=== PATIENT | female | born 2000 | race Caucasian/White ===

== ENCOUNTER 2020-02-18 13:53 | Outpatient (CLI) | payer OTHER, SELFPAY ==
[2020-02-20 11:19] LABS: TB Skin Test Erythema 0 mm; TB Skin Test Induration 0 mm (0-10); TB Skin Test Interpretation Negative (Negative); TB Skin Test Site Left Arm
== END 2020-02-18 13:54 | disposition home or self-care (01) ==
PROVIDERS: PCP Family Medicine; Visit Provider Family Medicine
DX: Z11.1 Encounter for screening for respiratory tuberculosis (principal)
CPT/HCPCS: 36415; 86580

== ENCOUNTER 2020-02-20 11:06 | Outpatient (CLI) | payer OTHER, SELFPAY ==
[2020-02-23 13:55] LABS: TB Skin Test Erythema 0 mm; TB Skin Test Induration 0 mm (0-10); TB Skin Test Interpretation Negative (Negative); TB Skin Test Site Left Arm
== END 2020-02-20 11:07 | disposition home or self-care (01) ==
LOC: CHSLAB 11:07
PROVIDERS: PCP Family Medicine; Visit Provider Family Medicine
DX: Z11.1 Encounter for screening for respiratory tuberculosis (principal)
CPT/HCPCS: 36415; 86580

== ENCOUNTER 2021-05-25 14:27 | Outpatient (CLI) | payer OTHER, SELFPAY ==
[2021-05-25 15:45] LABS: SARS-CoV-2 Ag Negative (Negative)
[2021-05-25 16:24] LABS: SARS-CoV-2 RNA PCR Negative (Negative)
== END 2021-05-25 14:28 | disposition home or self-care (01) ==
LOC: CHSLAB 14:30
PROVIDERS: PCP Family Medicine; Visit Provider Family Medicine
DX: J00 Acute nasopharyngitis [common cold] (principal); Z20.822 Contact with and (suspected) exposure to COVID-19
CPT/HCPCS: 87426; C9803; U0003; U0005

== ENCOUNTER 2021-07-21 13:29 | Outpatient (CLI) | payer OTHER, SELFPAY ==
--- NOTE | ~2021-07-21 | XR_ITS ---
EXAMINATION: XR chest 2V DATE: 07/21/2021 13:58 INDICATION: Cough TECHNIQUE: PA and lateral views of the chest are obtained. COMPARISON: 04/08/2007 FINDINGS: The lungs are free of acute opacities. There is no pleural effusion or pneumothorax. The ca rdiomediastinal silhouette is normal. The visualized bones and soft tissues are unremarkable. IMPRESSION: 1. No acute cardiopulmonary abnormality. Reviewed, dictated and finalized at location B.
== END 2021-07-21 13:30 | disposition home or self-care (01) ==
LOC: CHSIMG 13:33
PROVIDERS: PCP Family Medicine; Visit Provider Family Medicine
DX: R05.9 Cough, unspecified (principal)
CPT/HCPCS: 71046

== ENCOUNTER 2023-01-08 13:27 | Outpatient (CLI) | payer OTHER, SELFPAY ==
--- NOTE | 2023-01-08 14:30 | NEURO_ITS ---
PATIENT NUMBER: : # 22 year old diabetic complains of unusual sensation in lower extremitites. # Normal nerve conduction study. # Needle exam not ordered # could be related to small fiber neuropathy. Clinical correlation recommended. Anti Sensory Summary Table Stim Site NR Peak (ms) P-T Amp (?V) Site1 Site2 Delta-P (ms) Dist (cm) Glen (m/s) Left Sup Fibular Anti Sensory (Ant Lat Mall) 14 cm 3.2 7.2 14 cm Ant Lat Mall 3.2 16.0 50 Right Sup Fibular Anti Sensory (Ant Lat Mall) 14 cm 3.1 11.1 14 cm Ant Lat Mall 3.1 16.0 52 Left Sural Anti Sensory (Lat Mall) Calf 3.5 18.2 Calf Lat Mall 3.5 16.0 46 Right Sural Anti Sensory (Lat Mall) Calf 3.9 12.9 Calf Lat Mall 3.9 16.0 41 Motor Summary Table Stim Site NR Onset (ms) O-P Amp (mV) Site1 Site2 Delta-0 (ms) Dist (cm) Glen (m/s) Left Peroneal Motor (Vastus Med) Ankle 4.8 2.1 Popit Ankle 10.4 43.0 41 Popit 15.2 1.7 Right Peroneal Motor (Vastus Med) Ankle 4.6 3.9 Popit Ankle 8.7 43.0 49 Popit 13.3 3.7 Left Tibial Motor (Abd Cohn Brev) Ankle 5.9 8.9 Knee Ankle 8.0 43.0 54 Knee 13.9 6.3 Right Tibial Motor (Abd Cohn Brev) Ankle 6.2 10.6 Knee Ankle 8.6 44.0 51 Knee 14.8 7.1 F Wave Studies NR F-Lat (ms) L-R F-Lat (ms) Left Peroneal (Mrkrs) (EDB) 54.27 5.52 Right Peroneal (Mrkrs) (EDB) 48.75 5.52 Left Tibial (Mrkrs) (Abd Hallucis) 50.94 0.78 Right Tibial (Mrkrs) (Abd Hallucis) 51.72 0.78 MTDD
== END 2023-01-08 13:28 | disposition home or self-care (01) ==
LOC: ANHNEURO 13:28
PROVIDERS: Visit Provider Family Medicine
DX: M79.604 Pain in right leg (principal); M79.605 Pain in left leg
CPT/HCPCS: 95910

== ENCOUNTER 2023-07-24 11:17 | Outpatient (CLI) | payer OTHER, SELFPAY ==
--- NOTE | ~2023-07-24 | XR_ITS ---
EXAM: XR lumbar spine 2-3V DATE: 07/24/2023 11:33 HISTORY: Low back pain . COMPARISON: CT abdomen pelvis 02/13/2016. FINDINGS: Suture lines over the GE junction and left abdomen. Loss of the normal lumbar lordosis. Unf used right L1 transverse process. 5 nonrib-bearing lumbar-type vertebral bodies. Pedicles intact. Nor mal vertebral body alignment. Vertebral body heights preserved. Disc spaces maintained. Normal facets and posterior elements. No fracture or dislocation. IMPRESSION: Loss of the normal lumbar lordosis which can occur with positioning or muscle spasm. Othe rwise unremarkable lumbar radiograph findings. Reviewed, dictated and finalized at location K. IMPRESSION: Loss of the normal lumbar lordosis which can occur with positioning or muscle spasm. Otherwise unremarkable lumbar radiograph findings.
== END 2023-07-24 11:18 ==
PROVIDERS: PCP Family Medicine; Visit Provider Family Medicine
DX: M54.50 Low back pain, unspecified (principal); M40.56 Lordosis, unspecified, lumbar region
CPT/HCPCS: 72100

== ENCOUNTER 2023-10-02 00:39 | Day surgery (SDC) | payer OTHER, SELFPAY ==
[2023-09-20 11:11] VITALS: BMI 23.8
--- NOTE | 2023-10-02 12:50 | WPDANESEPPF ---
Anes - Initial Pre Proc Eval Procedure: Operation Date: 10/02/23 13:30 Proposed Procedures p Colonoscopy - Aleksander Hopper MD Date/Time: 10/02/23 12:50 Surgeon: Aleksander Hopper MD Pre Op Diagnosis: Diarrhea unspecified, change in bowel habit Patient Data Age: 23 Gender: F Height: 1.75 m Weight: 73 kg Allergies Allergy/AdvReac Type Severity Reaction Status Date / Time No Known Allergies Allergy Verified 09/20/23 11:10 Home Medications Medication Instructions Recorded Confirmed Type escitalopram oxalate 20 mg tablet 20 mg PO DAILY 12/06/22 09/20/23 History (Lexapro) Patient hx anesthesia problems: none Family hx anesthesia problems: none Results Review: All pre-operative results and documents have been reviewed as part of the pre-operative evaluation. [facility] Past Medical History Medical History (Updated 07/31/23 @ 14:25 by LIZ Strauss) Change in bowel habits Diarrhea Surgical History Surgical History (Updated 07/31/23 @ 14:06 by Zoie Zavala MA) History of appendectomy History of gastric bypass Family History Family History Mother Hypertension Grandparent Cancer Social History Social History Smoking status: Current every day smoker Tobacco type: e-cigarettes/vaping Alcohol intake: never Substance use type: does not use Lack of Transportation: No Lack of Food: Never True Current Housing: I Have Housing Concerned About Future Housing: No Difficulty Paying Gas/Electric Bills: No Difficulty Paying for Meds: No Currently Unemployed: No Education: Associate Degree Difficulty w/ Childcare or Family Care: No Living arrangements: alone Anes - Eval Final PreProcedure Day of Procedure 10/02/23 12:50 Patient weight: normal Heart: regular rate and rhythm Lungs: clear to auscultation Airway: Mallampati scale Neurological: alert and oriented Last oral intake: >/= 8 hours ASA classification: II Emergent: no Anesthetic plan: proceed Anesthesia type and monitoring: general GIVS and standard monitoring Results Review: All pre-operative results and documents have been reviewed as part of the pre-operative evaluation. Informed Consent: The patient's anesthetic plan and its attendant risks and benefits were discussed with the patient/family/POA. Questions were solicited and answers provided to the satisfaction of the patient/family/POA.
[2023-10-02 12:55] VITALS: BP 127/85; PULSE 76; RESP 18; TEMP 36.2; O2SAT 100
[2023-10-02] MEDS: LACTATED RINGERS 1,000 ML 150 ML IV CONT (13:03)
--- NOTE | 2023-10-02 13:16 | PM.HPGS ---
History of Present Illness History of Present Illness Consent: Risks, benefits, and alternatives have been discussed and questions answered. Patient agrees to proceed with procedure. Chief complaint: Diarrhea unspecified, change in bowel habit Narrative: Adelina Ceron is a 23 year old female here for first colonoscopy because diarrhea, using probiotics but not helping. Stool studies, celiac panel, and IBD serologies negative. Review of Systems Review of Systems: All systems reviewed & are unremarkable except as noted in HPI and below PMFSH Past Medical History Medical History (Updated 07/31/23 @ 14:25 by LIZ Strauss) Change in bowel habits Diarrhea Surgical History Surgical History (Updated 07/31/23 @ 14:06 by Zoie Zavala MA) History of appendectomy History of gastric bypass Family History Family History Mother Hypertension Grandparent Cancer Social History Social History Smoking status: Current every day smoker Tobacco type: e-cigarettes/vaping Alcohol intake: never Substance use type: does not use Lack of Transportation: No Lack of Food: Never True Current Housing: I Have Housing Concerned About Future Housing: No Difficulty Paying Gas/Electric Bills: No Difficulty Paying for Meds: No Currently Unemployed: No Education: Associate Degree Difficulty w/ Childcare or Family Care: No Living arrangements: alone Meds Home Medications and Allergies Home Medications Medication Instructions Recorded Confirmed Type escitalopram oxalate 20 mg tablet 20 mg PO DAILY 12/06/22 09/20/23 History (Lexapro) Allergies Allergy/AdvReac Type Severity Reaction Status Date / Time No Known Allergies Allergy Verified 10/02/23 12:54 Vital Signs Vital Signs - 24 hr 10/02/23 12:55 Temperature 97.2 F L Pulse Rate 76 Respiratory Rate 18 Blood Pressure 127/85 Pulse Oximetry 100 Oxygen Delivery Room Air Exam Const: General: comfortable and no acute distress HENMT: Face/Nose/Sinus: Normal nares present Eyes: General: appearance normal, both eyes and all related structures Neck: Neck: no JVD Resp: Auscultation: clear to auscultation bilaterally Cardio: Rate: regular rate Rhythm: regular rhythm GI: Inspection: non-distended GI Palp: Yes Soft to palpation Skin: General skin exam: normal color Neuro: General: gait normal Speech: normal speech Extrem: General: normal to inspection Psych: Mental Status: mental status grossly normal Assessment and Plan Assessment and plan (1) Diarrhea: Code(s): R19.7 - Diarrhea, unspecified Status: Acute Assessment and Plan: colonoscopy with colon biopsies
[2023-10-02 13:33] VITALS: BP 95/59; PULSE 61; RESP 17; O2SAT 100
[2023-10-02 13:43] VITALS: BP 116/80; PULSE 72; RESP 24; O2SAT 100
[2023-10-02 13:53] VITALS: BP 127/88; PULSE 77; RESP 22; O2SAT 100
== END 2023-10-02 14:00 | disposition home or self-care (01) ==
PROVIDERS: PCP Family Medicine; Referring Provider Nurse Practitioner Family; Visit Provider Internal Medicine Gastroenterology
PROC: 0DJD8ZZ Inspection of Lower Intestinal Tract, Via Natural or Artificial Opening Endoscopic (ICD-10-PCS; CPT 45378; principal; 2023-10-02 13:30)
DX: R19.7 Diarrhea, unspecified (principal); K62.1 Rectal polyp; K64.8 Other hemorrhoids; F17.290 Nicotine dependence, other tobacco product, uncomplicated
CPT/HCPCS: 45380; 88305; J2704; J7120

== ENCOUNTER 2023-10-17 12:59 | Outpatient (CLI) | payer OTHER, SELFPAY ==
--- NOTE | ~2023-10-17 | US_ITS ---
US right upper quadrant INDICATION: Right upper quadrant pain PROCEDURE: Realtime right upper abdominal ultrasound. COMPARISON: No prior studies for comparison. FINDINGS: The pancreas is normal without focal mass or pancreatic ductal dilation. Liver echotexture is normal without focal mass or intrahepatic biliary dilatation. There is normal directional flow i n the portal vein. The gallbladder is normal without stones, gallbladder wall thickening or pericholecystic fluid. Comm on bile duct measures 3 mm. No sonographic Worthy's sign. IMPRESSION: 1: Normal limited abdominal ultrasound. Reviewed, dictated and finalized at location B.
== END 2023-10-17 13:00 ==
LOC: MICIMG 12:59
PROVIDERS: PCP Family Medicine; Visit Provider Family Medicine
DX: R10.11 Right upper quadrant pain (principal)
CPT/HCPCS: 76705

== ENCOUNTER 2024-01-28 08:13 | Outpatient (CLI) | payer OTHER, SELFPAY ==
--- NOTE | ~2024-01-28 | NM_ITS ---
EXAMINATION: NM hepatobiliary w pharm DATE: 01/28/2024 10:13 INDICATION: Unspecified abdominal pain COMPARISON: None. TECHNIQUE: 4.7 mCi Tc-99m mebrofenin (Choletec) was administered intravenously. Scintigraphic images of the abdomen were obtained for one hour. 1.5 mcg sincalide (Kinevac) was administered by slow intr avenous infusion, and imaging was continued for 30 minutes. Gallbladder ejection fraction was calcula basilia by the technologist. FINDINGS: There is normal clearance of radiotracer from the blood pool. There is homogeneous tracer uptake by t he liver. Activity progresses to the gallbladder and bowel. The gallbladder ejection fraction (GBEF) is 29% (normal 10-90%, but most patient with gallbladder dysfunction have GBEF < 35% which does over lap with the normal range). IMPRESSION: 1. Gallbladder ejection fraction is at the lower limits of normal. This could be normal but is also within the range of overlap with gallbladder dysfunction or chronic cholecystitis in the appropriate clinical setting. Reviewed, dictated and finalized at location A.
== END 2024-01-28 08:14 | disposition home or self-care (01) ==
PROVIDERS: PCP Family Medicine; Visit Provider Family Medicine
DX: R10.9 Unspecified abdominal pain (principal)
CPT/HCPCS: 78227; A9537; J2805

== ENCOUNTER 2024-03-05 12:27 | Outpatient (CLI) | payer OTHER, SELFPAY ==
[2024-03-05 14:49] LABS: Alanine Aminotransferase 10 U/L (6-35); Albumin Level 4.7 g/dL (3.5-5.1); Alkaline Phosphatase 69 U/L (38-126); Amylase 94 U/L (30-110); Aspartate Amino Transferase 19 U/L (14-36); Bilirubin,Total 0.4 mg/dL (0.2-1.3); Lipase 71 U/L (23-300)
== END 2024-03-05 12:28 | disposition home or self-care (01) ==
PROVIDERS: PCP Family Medicine; Visit Provider Surgery
DX: K82.8 Other specified diseases of gallbladder (principal)
CPT/HCPCS: 36415; 80076; 82150; 83690

== ENCOUNTER 2024-03-09 00:43 | Day surgery (SDC) | payer OTHER, SELFPAY ==
[2024-03-02 11:37] VITALS: BMI 23.6
--- NOTE | 2024-03-02 11:43 | PC.NURSE ---
Report to the Outpatient Waiting Room, entrance under the green pavilion located off [facility], at time _1100_ on date _[id number]_. Planned Procedure Time: _1pm_.? Time changes happen often and if your time is changed the preop area will call you the afternoon before. - You and your visitor will be asked to self-screen and do not enter if you have any COVID symptoms. Please call surgeon if you need to reschedule. - A mask is optional within the hospital at this time. Patients may have clear liquids (water, carbonated beverages, clear teas, apple juice) until 3 hours prior to surgery with a maximum of 20 ounces. - No food from midnight until time of surgery and no smoking Take only the following medications with a SIP of water on the morning of surgery: ___Effexor and Lexapro DO NOT STOP ANY OF YOUR OTHER PRESCRIPTION MEDICATIONS PRIOR TO SURGERY EXCEPT THE FOLLOWING Medications to discontinue per physician ___None____ Please no make-up, nail filipino, hairspray, perfume, deodorant, or body powder the day of surgery.? No jewelry (including any body piercings) or valuables the day of surgery, leave them at home.? Please take a shower or bath the night before, or the morning of, surgery with an antibacterial soap.? Wear comfortable, loose fitting clothing.? - Jewelry must be removed prior to entering the operating room.? Rings and piercings that are not removed may be cut off. - The hospital will not accept responsibility for valuables.? - Please leave all valuables, including medications, at home the day of surgery. If you are going home after surgery, a licensed water truck driver must drive you home.? - NO public transportation without another adult if you receive anesthesia. - We recommend that an adult stay with you for 24 hours following discharge. - We also recommend that you do not drive, make important decision, drink alcoholic beverages, or take any drugs that were not prescribed by your health care provider for at least 24 hours after your discharge time. Follow any additional instructions given to you from your surgeon. Telephone instructions given to _Lexi__and asked if any additional questions and then verbalized understanding. Patient advised to call surgeon office or pre surgery nurse liaison [phone] if any additional questions.
[2024-03-09] VITALS (8 sets, daily range): BP systolic 118–136; BP diastolic 63–76; PULSE 63–93; RESP 16–22; TEMP 36.3–36.8; O2SAT 98–100
[2024-03-09] MEDS: ACETAMINOPHEN 500 MG TABLET 1000 MG PO (11:40)
[2024-03-09] MEDS: SCOPOLAMINE 1 MG PATCH 1 PATCH TRANSDERM (11:40)
[2024-03-09] MEDS: LACTATED RINGERS 1,000 ML 30 ML IV CONT (11:45)
[2024-03-09] MEDS: KETOROLAC 15 MG/ML VIAL (*BKC) IV PUSH (11:48)
[2024-03-09 11:50] LABS: BEDSIDEPREGUCG Negative (Negative)
--- NOTE | 2024-03-09 12:36 | WPDHPUPDATE1 ---
History and Physical Update Update Date/Time: 03/09/24 12:36 History and Physical has been reviewed, including an updated exam of the patient. There are NO changes in the patient's condition. Risks, benefits, and alternatives have been discussed and questions answered. Patient agrees to proceed with procedure.
--- NOTE | 2024-03-09 14:04 | WPDANESEPPF ---
Anes - Initial Pre Proc Eval Procedure: Operation Date: 03/09/24 13:00 Proposed Procedures p Laparoscopic Cholecystectomy, Possible Open - Malik Rockwell MD Date/Time: 03/09/24 14:04 Surgeon: Malik Rockwell MD Pre Op Diagnosis: biliary colic secondary to gallbladder dysfunction Patient Data Age: 23 Gender: F Height: 1.75 m Weight: 72.9 kg Last Vital Signs Temp 36.8 C 03/09/24 11:00 Pulse 93 03/09/24 11:00 Resp 16 03/09/24 11:00 BP 118/64 03/09/24 11:00 Pulse Ox 98 03/09/24 11:00 O2 Del Method Room Air 03/09/24 11:00 Allergies Allergy/AdvReac Type Severity Reaction Status Date / Time No Known Allergies Allergy Verified 03/09/24 11:46 Home Medications Medication Instructions Recorded Confirmed Type escitalopram oxalate 20 mg tablet 20 mg PO DAILY 12/06/22 03/09/24 History (Lexapro) venlafaxine 75 mg capsule,extended 75 mg PO DAILY 03/02/24 03/09/24 History release 24 hr Laboratory Tests 03/09/24 11:48 POC Urine HCG, Qual Negative (Negative) Patient hx anesthesia problems: none Family hx anesthesia problems: none Results Review: All pre-operative results and documents have been reviewed as part of the pre-operative evaluation. [facility] Past Medical History Medical History Change in bowel habits Diarrhea Surgical History Surgical History History of appendectomy 2017 History of gastric bypass 2018 History of tonsillectomy 2004 Family History Family History Mother Hypertension Grandparent Cancer Social History Social History Years smoked: 2 Smoking status: Former smoker Tobacco type: e-cigarettes/vaping Smoking end date: 12/01/23 Alcohol intake: never Substance use type: does not use Lack of Transportation: No Lack of Food: Never True Current Housing: I Have Housing Concerned About Future Housing: No Difficulty Paying Gas/Electric Bills: No Difficulty Paying for Meds: No Currently Unemployed: No Education: Associate Degree Difficulty w/ Childcare or Family Care: No Living arrangements: with family Spiritual care concerns: No Anes - Eval Final PreProcedure Day of Procedure 03/09/24 14:04 Patient weight: normal Heart: regular rate and rhythm Lungs: clear to auscultation Airway: Mallampati scale class II Neurological: alert and oriented Last oral intake: >/= 8 hours ASA classification: II Emergent: no Anesthetic plan: proceed Anesthesia type and monitoring: general ETT and standard monitoring Results Review: All pre-operative results and documents have been reviewed as part of the pre-operative evaluation. Informed Consent: The patient's anesthetic plan and its attendant risks and benefits were discussed with the patient/family/POA. Questions were solicited and answers provided to the satisfaction of the patient/family/POA.
[2024-03-09] MEDS: ceFAZolin 2 GM/D5W 50 ML 2 GM/50 ML BAG IVPB (14:30)
[2024-03-09] MEDS: BUPivacaine HCL 0.5% PF 30 ML VIAL 15 ML INFILTRATE (14:48)
[2024-03-09] MEDS: LIDO 1%/EPINEPHRINE 1:100,000 50 ML VIAL 15 ML INFILTRATE (14:48)
--- NOTE | 2024-03-09 15:37 | P.OPB_ITS ---
Procedure Note - Brief Procedure Note - Brief Date of procedure: 03/09/24 biliary colic secondary to gallbladder dysfunction Post-op diagnosis: Same Procedure performed: Laparoscopic cholecystectomy Surgeon: Malik Rockwell MD Learning And Development Analyst: Thuan BENAVIDES Anesthesia: GETA Implants: None Estimated blood loss (mL): 10 Drains: No Packing: No Pathology: Yes (Gallbladder to pathology) Complications: No immediate complications Condition: Stable Disposition: PACU
[2024-03-09] MEDS: HYDROmorphone HCL INJ (*CRX) 1 MG/ML SYR 0.25 MG IV PUSH ×2 (15:58→16:03)
--- NOTE | 2024-03-10 13:06 | W.PM.PROC2 ---
Procedure Note - Detailed Date of Procedure 03/10/24 Pre-op Diagnosis Biliary colic secondary to gallbladder dysfunction Post-op Diagnosis Same Procedure Performed Laparoscopic cholecystectomy Surgeon Malik Rockwell MD Golf Cart Mechanic Rita Taylor [facility] Anesthesia General Indications Patient is a 23-year-old female who has been having intermittent abdominal pain situated mostly in the epigastric right upper quadrant the abdomen. Pain is made worse with eating fatty foods. She had abdominal ultrasound performed showed no gallstones and no gallbladder wall thickening. HIDA scan was then performed showing mildly reduced ejection fraction of gallbladder. Did experience significant pain in the epigastric and right upper quadrant of the abdomen with the provocative portion of the HIDA scan. She appears have biliary colic due to gallbladder dysfunction. Presents for elective laparoscopic cholecystectomy. Findings The gallbladder appeared to be normal in size and wall thickness. No adhesions of the omentum, duodenum, or stomach to the gallbladder was seen. No stones were palpated the gallbladder. Description of Procedure After informed consent was obtained patient brought to the operating room she was placed supine position and general endotracheal anesthesia was administered. The abdomen was then prepped and draped usual sterile fashion. A time-out was then performed correctly identifying the patient as well as procedure to be performed. She was given perioperative IV antibiotics. Entered the abdomen left upper quadrant utilizing a 5mm Optiview port. Once inside the abdomen insufflated to adequate pneumoperitoneum of 15mmHg of CO2. I then placed a 5mm periumbilical trocar port as well as a 10mm epigastric trocar port and 2 more 5mm right subcostal trocar ports all under direct visualization. There were no adhesions from her previous laparoscopic gastric bypass to obscure the view of the gallbladder. The gallbladder was held with a laparoscopic grasper in elevated over the right half of the liver towards her right shoulder. Second grasper was then used to hold the gallbladder at the infundibulum. I then stripped down the visceral peritoneum off of the infundibular gallbladder to identify the cystic duct. The cystic duct was then dissected out circumferentially. Cystic artery was identified and dissected out circumferentially as well. The posterior wall the gallbladder at the infundibulum dissected free liver into the critical view was obtained. At this point I then placed 2 clips proximally cystic duct and 2 clips distally high on infundibular gallbladder. Cystic duct was then divided Endo Mary. In a similar fashion cystic artery was then clipped and divided as well. The gallbladder was then resected off the liver utilized electrocautery. During the dissection the wall the gallbladder was punctured and some of the bile spilled out the gallbladder. It appeared to be noninfected typical thin bile which was aspirated as it leaked from the gallbladder. Once the gallbladder was free liver is placed into an Endo-Catch bag and brought out through the epigastric port site. The gallbladder was then sent to pathology for examination. I then irrigated out the right upper quadrant the abdomen the gallbladder fossa with sterile saline solution. The fluid aspirated was clear. I then aspirated the fluid from the pelvis as well . There is no evidence of bleeding or bile leak. I then removed all the trocar ports under direct visualization all port sites appeared hemostatic. I then allowed the abdomen to decompress . I then irrigated out the port sites sterile saline solution. The epigastric 10mm trocar port site was closed at the fascial level utilizing a 0 Vicryl suture. The skin edges in all the port sites were then approximated utilizing a running subcuticular 4 Monocryl suture. Incisions were then cleaned the skin glue was applied. The patient tolerated the procedure well no complications. All sponges, needles, and instrument counts were correct at the end procedure. EBL was _10__cc. The patient was awakened and taken to recovery in stable and satisfactory condition. Implants None Estimated Blood Loss 10 Drains No Packing No Pathology Yes ( gallbladder to pathology) Complications No immediate complications Condition Stable Disposition PACU [facility] Billing Surgery - Charge Forward: Surgery Billing
== END 2024-03-09 17:14 | disposition home or self-care (01) ==
PROVIDERS: PCP Family Medicine; Visit Provider Surgery
PROC: 0FT44ZZ Resection of Gallbladder, Percutaneous Endoscopic Approach (ICD-10-PCS; CPT 47562; principal; 2024-03-09 13:00)
DX: K82.8 Other specified diseases of gallbladder (principal); Z98.84 Bariatric surgery status; Z87.891 Personal history of nicotine dependence
CPT/HCPCS: 47562; 88304; A9270; J0690; J1100; J1171; J1596; J1885; J2003; J2004; J2250; J2405; J2704; J3010; J7120

== ENCOUNTER 2025-04-27 09:03 | Outpatient (CLI) | payer BC, SELFPAY ==
[2025-04-27 09:58] LABS: Hematocrit 36.1 % (37.0-47.0); Hemoglobin 11.2 g/dL (12.0-15.0); Immature Granulocyte Percent A 0.5 % (0-0.5); Lymphocytes Absolute Auto 1.55 K/mm3 (0.9-3.2); Mean Corpuscular HGB Conc 31.0 g/dl (32-36); Mean Corpuscular Hemoglobin 26.9 pg (26-34); Mean Corpuscular Volume 86.6 fl (80-100); Nucleated Red Blood Cells Absolute Auto 0.000 K/mm3 (0.0-0.012); Nucleated Red Blood Cells Perc 0.0 % (0.0-0.2); Platelet Count Result 274 k/mm3 (150-375); Red Blood Count 4.17 M/mm3 (4.2-5.4); White Blood Count 5.7 K/mm3 (4.5-10.0)
== END 2025-04-27 09:04 | disposition home or self-care (01) ==
PROVIDERS: PCP Family Medicine; Visit Provider Obstetrics & Gynecology
DX: N92.0 Excessive and frequent menstruation with regular cycle (principal)
CPT/HCPCS: 36415; 85025; 86850; 86900; 86901